=== PATIENT | female | born 1985 | race Asian ===

== ENCOUNTER 2018-03-22 23:35 | Inpatient (IN) | payer OTHER, MEDICAID ==
[2018-03-22] MEDS ORDERED: AMPICILLIN 2 GM/NS (PMX) 100 ML (23:46)
[2018-03-22] MEDS ORDERED: OXYTOCIN 30 UNITS/LR 1,000 ML IV (23:50)
[2018-03-22] MEDS ORDERED: LIDOCAINE 1% (MPF) 30 ML INJ (23:51)
[2018-03-23] MEDS ORDERED: IBUPROFEN 600 MG TAB PO
[2018-03-23] MEDS ORDERED: OXYCODONE/ASPIRIN (4.88/325) TAB PO
[2018-03-23] MEDS ORDERED: LIDOCAINE 1% (MPF) 30 ML INJ INJ
[2018-03-23] MEDS: LACTATED RINGER'S 1,000 ML IV (00:15)
[2018-03-23 00:16] LABS: ADD MAN DIFF? NO
[2018-03-23] MEDS: OXYTOCIN 30 UNITS/LR 500 ML IV ×3 (00:16→04:24)
[2018-03-23 00:31] LABS: BASOPHILS % 0.3 % (0.0-2.0); EOSINOPHILS % 0.5 % (0.0-7.0); HEMATOCRIT 37.8 % (37.0-47.0); HEMOGLOBIN 12.8 g/dl (12.0-16.0); LYMPHOCYTES # 2.3 10^3/ul (0.8-2.9); LYMPHOCYTES % 28.6 % (15.0-51.0); MEAN CORPUSCULAR HEMOGLOBIN 30.4 pg (29.0-33.0); MEAN CORPUSCULAR HGB CONC 33.9 g/dl (32.0-37.0); MEAN CORPUSCULAR VOLUME 89.8 fl (82.0-101.0); MEAN PLATELET VOLUME 11.4 fl (7.4-10.4); MONOCYTE # 0.6 10^3/ul (0.3-0.9); MONOCYTES % 7.3 % (0.0-11.0); NEUTROPHILS % 62.4 % (39.0-77.0); PLATELET COUNT 126 10^3/UL (140-415); RED BLOOD COUNT 4.21 10^6/ul (4.20-5.40); RED CELL DISTRIBUTION WIDTH 12.7 % (11.5-14.5)
[2018-03-23 00:53] LABS: GLUCOSE 89 mg/dl (70-220)
[2018-03-23 00:56] LABS: INR 0.87; PROTIME 11.9 Sec (11.9-14.9); PT RATIO 0.9
[2018-03-23 01:23] LABS: HEPATITIS B SURFACE ANTIGEN NEGATIVE (NEGATIVE)
[2018-03-23 01:33] LABS: HIV 1&2 ANTIBODY NEGATIVE (NEGATIVE)
[2018-03-23] MEDS ORDERED: OXYTOCIN 30 UNITS/LR 500 ML IV ×2 (02:00)
[2018-03-23] MEDS ORDERED: DIPHENHYDRAMINE 25 MG CAP PO (02:00)
[2018-03-23] MEDS ORDERED: HYDROCODONE/APAP (5/325) TAB PO (02:00)
[2018-03-23] MEDS ORDERED: ZOLPIDEM 5 MG TAB PO (02:00)
[2018-03-23] MEDS ORDERED: METHYLERGONOVINE 0.2 MG INJ IM ×2 (02:00)
[2018-03-23] MEDS ORDERED: CARBOPROST 250 MCG INJ IM ×2 (02:00)
[2018-03-23] MEDS ORDERED: ACETAMINOPHEN 325 MG TAB PO (02:00)
[2018-03-23] MEDS ORDERED: MISOPROSTOL 200 MCG TAB PR ×2 (02:00)
[2018-03-23] MEDS ORDERED: ONDANSETRON 4 MG INJ IV (02:00)
[2018-03-23] MEDS ORDERED: LANOLIN 7 GM TUBE TOP (02:00)
[2018-03-23] MEDS ORDERED: NACL 0.9% 3 ML SYG IV (02:00)
[2018-03-23] MEDS: WITCH HAZEL/GLYCERIN PAD PR (04:22)
[2018-03-23] MEDS: IBUPROFEN 600 MG TAB PO ×4 (05:43→23:43)
[2018-03-23 07:53] LABS: HEMATOCRIT 35.5 % (37.0-47.0)
[2018-03-23] MEDS: SENNA/DOCUSATE NA (8.6MG/50MG) TAB PO ×2 (08:46→23:43)
[2018-03-23 20:01] LABS: RAPID PLASMA REAGIN NONREACTIVE (NR)
[2018-03-24] MEDS: IBUPROFEN 600 MG TAB PO ×2 (05:40→12:09)
[2018-03-24 09:21] LABS: RUBELLA ANTIBODY - IGM <20.00 AU/mL
[2018-03-24] MEDS: SENNA/DOCUSATE NA (8.6MG/50MG) TAB PO (09:23)
[2018-03-24 10:06] LABS: RUBELLA ANTIBODY - IGG 5.55 index
== END 2018-03-24 16:04 | disposition home or self-care (01) | DRG 807 ==
LOC: OBT 23:35 → L-D 23:39 → PP1 03-23 01:32 → OBT 23:40 → L-D 23:40
PROVIDERS: Obstetrics & Gynecology Obstetrics
PROC: 10E0XZZ Delivery of Products of Conception, External Approach (ICD-10-PCS; principal; 2018-03-23)
PROC: 0HQ9XZZ Repair Perineum Skin, External Approach (ICD-10-PCS; 2018-03-23)
DX: O62.3 Precipitate labor (principal); Z37.0 Single live birth; O99.284 Endocrine, nutritional and metabolic diseases complicating childbirth; E03.9 Hypothyroidism, unspecified; O24.420 Gestational diabetes mellitus in childbirth, diet controlled; O70.0 First degree perineal laceration during delivery; O92.12 Cracked nipple associated with the puerperium; Z3A.38 38 weeks gestation of pregnancy
CPT/HCPCS: 82947; 85014; 85018; 85025; 85610; 85730; 86592; 86703; 86762; 86850; 86900; 86901; 87340